=== PATIENT | male | born 1980 | race Caucasian/White ===

== ENCOUNTER 2023-08-09 13:35 | Outpatient (CLI) | payer OTHER, SELFPAY ==
--- NOTE | ~2023-08-09 | XR_ITS ---
EXAM: XR abdomen/kub 1V DATE: 08/09/2023 13:54 HISTORY: Abd pain . COMPARISON: None available. FINDINGS: Clear lung bases. Normal bowel gas pattern. No organomegaly. Left pelvic phlebolith. Mild spinal asymmetry. Interbody devices at L4-5 and L5-S1. IMPRESSION: Unremarkable abdominal radiograph findings. Reviewed, dictated and finalized at location K.
== END 2023-08-09 13:36 ==
LOC: MICIMG 13:39
PROVIDERS: PCP Nurse Practitioner Adult Health; Visit Provider Nurse Practitioner Adult Health
DX: R10.84 Generalized abdominal pain (principal)
CPT/HCPCS: 74018

== ENCOUNTER 2024-07-07 10:41 | Emergency (ER) | payer OTHER, SELFPAY ==
--- OUTSIDE RECORDS SUMMARY | 2024-07-07 10:45 | XMS_ITS | Clinical Summary ---
Author Organization [facility] [employer] [place] Address [address] [place] [address] Care Team Providers Care Wrapper Stripper Name Role Phone Nessa Schultz MD Primary Care Provider [phone] Allergies No known active allergies Medications Cholecalciferol, Vitamin D3, 50 mcg (2,000 unit) Capsule Take 2,000 Int'l Units by mouth daily. Active multivitamin (DAILY-ROSA ISELA) tablet Take 1 Tablet by mouth daily. Active sildenafiL (Viagra) 100 mg tabletIndication s:Other male erectile dysfunction Take 1 Tablet (100 mg) by mouth 1 time daily as needed for Erectile Dysfunction. Take 0.5-4h before sexual activity. 30 Tablet 2 4 Active busPIRone (BUSPAR) 15 mg TabletIndication s:JOSSE (generalized anxiety disorder) Take 1 tablet by mouth once daily 90 Tablet 1 5 Active irbesartan (Avapro) 150 mg tabletIndication s:Benign hypertension Take 1 Tablet (150 mg) by mouth daily at bedtime. 90 Tablet 5 Active omeprazole (PriLOSEC) 20 mg Tablet, Delayed Release (E.C.)Indication s:Gastroesophage al reflux disease with esophagitis, unspecified whether hemorrhage Take 1 Tablet (20 mg) by mouth daily before breakfast. Take 15-30 minutes before first food of the day. 90 Tablet 5 Active buPROPion HCL (Wellbutrin XL) 300 mg Extended Release 24 hour tabletIndication s:Moderate episode of recurrent major depressive disorder (CMS/HCC) Take 1 Tablet (300 mg) by mouth daily in the morning. 90 Tablet 5 Active DULoxetine (Cymbalta) 30 mg Capsule, Delayed Release(E.C.)Ind ications:Chronic pain syndrome Take 1 Capsule (30 mg) by mouth daily in the morning. 90 Capsule 5 Active hydroCHLOROthiaz anastasiia 25 mg tabletIndication s:Benign hypertension Take 1 Tablet (25 mg) by mouth daily. 90 Tablet 5 Active buPROPion HCL (Wellbutrin XL) 300 mg Extended Release 24 hour tabletIndication s:Moderate episode of recurrent major depressive disorder (CMS/HCC) Take 1 Tablet (300 mg) by mouth daily in the morning. 90 Tablet 5 06/13/19 25 Discontinu ed(Reorder ) DULoxetine (Cymbalta) 30 mg Capsule, Delayed Release(E.C.)Ind ications:Chronic pain syndrome Take 1 Capsule (30 mg) by mouth daily in the morning. 90 Capsule 5 06/13/19 25 Discontinu ed(Reorder ) hydroCHLOROthiaz anastasiia 25 mg tabletIndication s:Benign hypertension Take 1 Tablet (25 mg) by mouth daily. 90 Tablet 5 06/13/19 25 Discontinu ed(Reorder ) irbesartan (Avapro) 150 mg tabletIndication s:Benign hypertension Take 1 Tablet (150 mg) by mouth daily at bedtime. 90 Tablet 5 06/13/19 25 Discontinu ed(Reorder ) omeprazole (PriLOSEC) 20 mg Tablet, Delayed Release (E.C.)Indication s:Gastroesophage al reflux disease with esophagitis, unspecified whether hemorrhage Take 1 Tablet (20 mg) by mouth daily before breakfast. Take 15-30 minutes before first food of the day. 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 Negative evals. Off all narcotics since 2021. Vitamin D deficiency 08/26/2021 Adrenal adenoma, right 05/01/2020 Overview (05/01/2020): Benign, found incidentally on CT SCAN Fibromyalgia 12/18/2019 History of lumbar fusion 12/18/2019 Overview (12/18/2019): 2005 Benign hypertension 12/27/2017 Resolved Problems Problem Noted Date Diagnosed Date Resolved Date ETD (Eustachian tube dysfunction), right 05/01/2020 08/26/2021 TISHA (obstructive sleep apnea) 04/01/2020 08/26/2021 Other hyperlipidemia 12/27/2017 020 Tobacco use 12/27/2016 12/18/2019 Cigarette dependence 12/27/2016 022 Encounters Date Type Department Care Team Description 06/14/2024 9:00 AM CDT Procedure visit [facility] [place] [address] [place] [address] Issue of repeat prescription for medication (Primary Dx) 06/12/2024 Refill [facility] [employer] [place] [address] [place] [address] Nessa Schultz MD Moderate episode of recurrent major depressive disorder (CMS/HCC); Chronic pain syndrome; Benign hypertension 06/12/2024 Refill [facility] [employer] [place] [address] [place] [address] Sherry Lala ANP Benign hypertension; Gastroesophageal reflux disease with esophagitis, unspecified whether hemorrhage 04/17/2024 External Device Data STL ABSTRACTION Provider, Abstract 04/12/2024 1:30 PM REEL SLITTER Office Visit [facility] [place] [address] [place] [address] Sherry Lala ANP Benign hypertension (Primary Dx); Gastroesophageal reflux disease with esophagitis, unspecified whether hemorrhage; Atypical nevus of face; Prediabetes; Screen for colon cancer 04/12/2024 Results Follow-Up [facility] [place] [address] [place] [address] Sherry Lala, MAGAN PSA, VITAMIN B12 LEVEL, VITAMIN D 25 HYDROXY, Additional followed-up results: 7 04/09/2024 8:40 AM REEL SLITTER Office Visit [facility] [place] [address] [address] Screening for condition (Primary Dx) 04/09/2024 Orders Only [facility] [place] [address] [place] [place] [address] Dalia Shaw Special screening for malignant neoplasm of prostate; Vitamin D deficiency; Benign hypertension; Prediabetes from Last 3 Months Immunizations Immunization Administration Dates Next Due (ADACEL/BOOSTRIX)(10 YR UP) TDAP VACCINE, 0.5ML, IM 10/28/2022 (BRYANT) COVID-19 VACCINE - EMERGENCY USE AUTHORIZATION, AD26,COV2S(PF) 0.5 ML IM SUSP 04/29/2020 (PNEUMOVAX 23)(50 YRS UP) PN EUMOCOCCAL POLYSACCHARIDE (PPV23) 0.5 ML, IM 12/13/2017 INFLUENZA VACCINE QUADRIVALE NT 3 YR UP PF IM 11/25/2021,12/03/2016 INFLUENZA VACCINE QUADRIVALENT 6 MOS UP IM 11/22,11/25/2017 INFLUENZA VACCINE QUADRIVALE NT 6 MOS UP PF IM 11/17/2022,11/19/2020,11/19/2019 INFLUENZA VACCINE TRIVALENT SPLIT VIRUS, (6 MOS UP), 0.5ML (PF), IM 11/23/2023 Family History Medical History Relation Name Comments Alcohol abuse Brother 1 Alcohol abuse Brother 2 No Known Problems Brother 3 No Known Problems Brother 4 No Known Problems Daughter Alcohol abuse Father James Primas Stroke Father James Primas Alcohol abuse Maternal Grandfather Sang Vincentshi Lung Cancer Maternal Grandfather Sang Dennys Breast Cancer Maternal Grandmother Jaqui Dennys Diabetes Mother Unknown Paternal Grandfather Lawrance Primas Alzheimer's Disease Paternal Grandmother No Known Problems Son Relation Name Status Comments Brother 1 Alive Brother 2 Alive Brother 3 Alive Brother 4 Alive Daughter Alive Father James Primas Maternal Grandfather Sang Noyola Maternal Grandmother Jaqui Noyola Mother Alive Paternal Grandfather Lawrance Primas Paternal Grandmother Son Alive Social History Tobacco Use Types Packs/Day Years Used Date Smoking Tobacco: Former Cigarettes 0.3 20 0 09/30/2000 - 09/30/2020 Smokeless Tobacco: Never Alcohol Use Standard Drinks/Week Comments Never 0 (1 standard drink = 0.6 oz pur e alcohol) rarely Sex and Gender Information Value Date Recorded Sex Assigned at Not on file Legal Sex Male 2:49 PM CDT Gender Identity Not on file Sexual Orientation Not on file Last Filed Vital Signs Vital Sign Reading Time Taken Comments Blood Pressure 130/78 04/12/2024 1:19 PM REEL SLITTER Pulse 78 04/12/2024 1:19 PM REEL SLITTER Temperature 36.9 C (98.4 F) 04/12/2024 1:19 PM REEL SLITTER Respiratory Rate 18 04/12/2024 1:19 PM REEL SLITTER Oxygen Saturation 99% 04/12/2024 1:19 PM REEL SLITTER Inhaled Oxygen Concentration - - Weight 117 kg (258 lb) 04/12/2024 1:19 PM REEL SLITTER Height 180.3 cm (5' 11 ) 04/12/2024 1:19 PM REEL SLITTER Body Mass Index 35.98 04/12/2024 1:19 PM REEL SLITTER Plan of Treatment Upcoming Encounters Date Type Department Care Team (Late st Contact Info) Description 10/01/2024 8:00 AM CDT Procedure visit [facility] [place] [address] [place] [address] 10/04/2024 1:30 PM CDT Office Visit [facility] [place] [address] [place] [address] Sherry Lala, ANP [address] [address] [address] [place] [address] Health Maintenance Due Date Last Done Comments HEPATITIS B VACCINES (1 of 3 - 19+ 3-dose series) 1997 COLORECTAL SCREENING 07/27/2023 Colorectal Cancer Screening 07/27/2023 FIT-DNA Q 3 years 07/27/2023 FIT/FOBT Q 1 year 07/27/2023 Flex Sig/CT Colonography Q 5 years 07/27/2023 COVID-19 Vaccine ( season) 2023 04/29/2020 Pre-Diabetes and Diabetes Screening 04/09/2027 04/09/2024, 11/08/2023, 05/05/2023, Additional history exists DTAP/TDAP/TD VACCINES (2 - Td or Tdap) 10/28/2032 10/28/2022 INFLUENZA VACCINE Completed 11/23/2023, , 11/25/2021, Additional history exists Preventative Visit- Commercial Completed 03/13/2024 HPV VACCINES Aged Out No longer eligi ble based on patient's age to complete this topic Procedures Procedure Name Priority Date/Time Associated Diagnosis Comments EXTRA TUBE Routine 04/09/2024 8:22 AM REEL SLITTER COMPREHENSIVE METABOLIC PANEL Routine 04/09/2024 8:22 AM REEL SLITTER Benign hypertension CBC WITH DIFFERENTIAL Routine 04/09/2024 8:22 AM REEL SLITTER Benign hypertension URINALYSIS W/REFLEX MICROSCOPIC Routine 04/09/2024 8:22 AM REEL SLITTER Benign hypertension TSH REFLEXIVE Routine 04/09/2024 8:22 AM REEL SLITTER Benign hypertension MICROALBUMIN/CREATINI NE RATIO, RANDOM UR Routine 04/09/2024 8:22 AM REEL SLITTER Prediabetes HEMOGLOBIN A1C Routine 04/09/2024 8:22 AM REEL SLITTER Prediabetes LIPID PANEL Routine 04/09/2024 8:22 AM REEL SLITTER Benign hypertension VITAMIN D 25 HYDROXY Routine 04/09/2024 8:22 AM REEL SLITTER Vitamin D deficiency VITAMIN B12 LEVEL Routine 04/09/2024 8:2 2 AM REEL SLITTER Vitamin D deficiency PSA Routine 04/09/2024 8:22 AM REEL SLITTER Special screening for malignant neoplasm of prostate from Last 3 Months Results * EXTRA TUBE (04/09/2024 8:22 AM REEL SLITTER) COMMENT CHEMISTRY [facility] Comment: An extra specimen was received with no test requested. The specimen will be maintained in storage in case additional testing is needed. Please call the client service department for further assistance. SPECIMEN TYPE Serum [facility] Comment: Test Performed at: [facility] [address] [place] [address] Rogelio Louis MD 04/09/2024 8:22 AM REEL SLITTER 04/10/2024 8:43 AM REEL SLITTER Sherry Lala ANP CHEMISTRY ORDERABLES Final R esult Performing Organization Address City/State/ZIP Co ks Phone Number [facility] [phone] [facility] [address] [place] [address] * TSH REFLEXIVE (04/09/2024 8:22 AM REEL SLITTER) Pathologist [facility] TSH 1.53 0.40 - 4.50 mIU/L [facility] Comment: Test Performed at: [place] [address] [address] [place] [address] Rogelio Louis Blood 04/09/2024 8:22 AM REEL SLITTER 04/10/2024 2:18 AM REEL SLITTER Sherry Lala ANP CHEMISTRY ORDERABLES Final R esult [facility] [phone] [facility] [place] [address] [address] [address] * MICROALBUMIN/CREATININE RATIO, RANDOM UR (04/09/2024 8:22 AM REEL SLITTER) Creatinine, Urine 49 20 - 320 mg/dL [facility] MICROALBUMIN, URINE 0.4 See Note: mg/dL [facility] Comment: Reference Range: Reference Range Not established MICROALBUMIN/CREAT RATIO, UR 8 <30 mg/g creat [facility] Comment: The ADA defines abnormalities in albumin excretion as follows: Albuminuria Category Result (mg/g creatinine) Normal to Mildly increased <30 Moderately increased 30-299 Severely increased > OR = 300 The ADA recommends that at least two of three specimens collected within a 3-6 month period be abnormal before considering a patient to be within a diagnostic category. Test Performed at: [facility] [address] [place] [address] Rogelio Louis MD Urine URINE SPECIMEN OBTAINED BY CLEAN CATCH PROCEDURE / Unknown 04/09/2024 8:22 AM REEL SLITTER 04/10/2024 8:43 AM REEL SLITTER us Sherry Lala ANP URINE ORDERABLES Final Resul t [facility] [phone] [facility] [address] [place] [address] * (ABNORMAL) CBC WITH DIFFERENTIAL (04/09/2024 8:22 AM REEL SLITTER) WBC 6.0 3.8 - 10.8 Thousand/ uL [facility] RBC 4.84 4.20 - 5.80 Million/u L [facility] HEMOGLOBIN 13.6 13.2 - 17.1 g/dL [facility] HEMATOCRIT 42.9 38.5 - 50.0 % [facility] MCV 88.6 80.0 - 100.0 fL [facility] MCH 28.1 27.0 - 33.0 pg [facility] MCHC 31.7(L) 32.0 - 36.0 g/dL [facility] Comment: For adults, a slight decrease in the calculated MCHC value (in the range of 30 to 32 g/dL) is most likely not clinically significant; however, it should be interpreted with caution in correlation with other red cell parameters and the patient's clinical condition. RDW 12.6 11.0 - 15.0 % [facility] PLATELETS 303 140 - 400 Thousand/ uL [facility] MPV 10.1 7.5 - 12.5 fL [facility] NEUTROPHIL ABSOLUTE 3,462 1,500 - 7,800 cells/uL [facility] LYMPHOCYTE ABSOLUTE 2,022 850 - 3,900 cells/uL [facility] MONOCYTE ABSOLUTE 426 200 - 950 cells/uL [facility] EOSINOPHIL ABSOLUTE 42 15 - 500 cells/uL [facility] BASOPHILS ABSOLUTE 48 0 - 200 cells/uL [facility] NEUTROPHIL 57.7 % [facility] LYMPHOCYTES 33.7 % [facility] MONOCYTE 7.1 % [facility] EOSINOPHILS 0.7 % [facility] BASOPHILS 0.8 % [facility] Comment: Test Performed at: [place] [address] [address] [place] [address] Rogelio [facility] Blood 04/09/2024 8:22 AM REEL SLITTER 04/10/2024 2:18 AM REEL SLITTER Sherry Lala ANP HEMATOLOGY ORDERABLES Final Result [facility] [phone] [place] [address] [address] [place] [address] * VITAMIN D 25 HYDROXY (04/09/2024 8:22 AM REEL SLITTER) VITAMIN D, 25 OH, TOTAL 38 30 - 100 ng/mL [facility] Comment: Vitamin D Status 25-OH Vitamin D: Deficiency: <20 ng/mL Insufficiency: 20 - 29 ng/mL Optimal: > or = 30 ng/mL For 25-OH Vitamin D testing on patients on D2-supplementation and patients for whom quantitation of D2 and D3 fractions is required, the Quest[facility](TM) 25-OH VIT D, (D2,D3), LC/MS/MS is recommended: order code [id number] (patients >2yrs). See Note 1 Note 1 For additional information, please refer to http://education.CallMD/faq/OVO326 (This link is being provided for informational/ educational purposes only.) Test Performed at: [facility] [address] [place] [address] Rogelio Louis MD Blood 04/09/2024 8:22 AM REEL SLITTER 04/10/2024 2:18 AM REEL SLITTER Sherry Lala [facility] CHEMISTRY ORDERABLES Final R esult [facility] [phone] [facility] [address] * URINALYSIS WITH REFLEX MICROSCOPIC (04/09/2024 8:22 AM REEL SLITTER) COLOR UA YELLOW YELLOW [facility] CLARITY UA CLEAR CLEAR [facility] SPECIFIC GRAVITY UA 1.009 1.001 - 1.035 [facility] PH UA 7.5 5.0 - 8.0 [facility] GLUCOSE UA NEGATIVE NEGATIVE [facility] BILIRUBIN UA NEGATIVE NEGATIVE [facility] KETONES UA NEGATIVE NEGATIVE [facility] BLOOD UA NEGATIVE NEGATIVE [facility] PROTEIN UA NEGATIVE NEGATIVE [facility] NITRITE UA NEGATIVE NEGATIVE [facility] LEUKOCYTE ESTERASE UA NEGATIVE NEGATIVE [facility] WBC UA NONE SEEN < OR = 5 /HPF [facility] RBC UA NONE SEEN < OR = 2 /HPF [facility] EPITHELIAL CELLS, URINE NONE SEEN < OR = 5 /HPF [facility] BACTERIA UA NONE SEEN NONE SEEN /HPF [facility] HYALINE CAST NONE SEEN NONE SEEN /LPF [facility] Comment: Test Performed at: [facility] [address] [place] [address] Rogelio Louis MD Urine URINE SPECIMEN OBTAINED BY CLEAN CATCH PROCEDURE / Unknown 04/09/2024 8:22 AM REEL SLITTER 04/10/2024 8:43 AM REEL SLITTER Sherry Ocampo Spike ANP URINE ORDERABLES Final Resul t [facility] [phone] [facility] [address] [facility] [place] [address] * PSA (04/09/2024 8:22 AM REEL SLITTER) PSA 0.61 < OR = 4.00 ng/mL [facility] Comment: The total PSA value from this assay system is standardized against the WHO standard. The test result will be approximately 20% lower when compared to the equimolar-standardized total PSA (Anat [employer]). Comparison of serial PSA results should be interpreted with this fact in mind. This test was performed using the Siemens chemiluminescent method. Values obtained from different assay methods cannot be used interchangeably. PSA levels, regardless of value, should not be interpreted as absolute evidence of the presence or absence of disease. Test Performed at: [facility] [address] Rogelio Louis MD Blood 04/09/2024 8:22 AM REEL SLITTER 04/10/2024 2:18 AM REEL SLITTER Sherry Ocampo Spike ANP CHEMISTRY ORDERABLES Final R esult Performing Organization Address City/[facility]/ZIP Co de Phone Number [facility] [phone] [facility] [address] [place] [address] * HEMOGLOBIN A1C (04/09/2024 8:22 AM REEL SLITTER) HEMOGLOBIN A1C 5.6 <5.7 % of total Hgb [facility] Comment: For the purpose of screening for the presence of diabetes: <5.7% Consistent with the absence of diabetes 5.7-6.4% Consistent with increased risk for diabetes (prediabetes) > or =6.5% Consistent with diabetes This assay result is consistent with a decreased risk of diabetes. Currently, no consensus exists regarding use of hemoglobin A1c for diagnosis of diabetes in children. According to [place] Diabetes Association (ADA) guidelines, hemoglobin A1c <7.0% represents optimal control in non- diabetic patients. Different metrics may apply to specific patient populations. Standards of Medical Care in Diabetes(ADA). ESTIMATED AVERAGE GLUCOSE (MG/DL) 114 mg/dL [facility] ESTIMATED AVERAGE GLUCOSE (MMOL/L) 6.3 mmol/L [facility] Comment: Test Performed at: [place] [address] [place] [address] Rogelio Louis Blood 04/09/2024 8:22 AM REEL SLITTER 04/10/2024 2:18 AM REEL SLITTER Sherry Lala ANP CHEMISTRY ORDERABLES Final R esult [facility] [phone] [place] [address] [place] [address] * VITAMIN B12 LEVEL (04/09/2024 8:22 AM REEL SLITTER) VITAMIN B12 483 200 - 1100 pg/mL [facility] Comment: Test Performed at: [facility] [address] [place] [address] Rogelio Louis MD Blood 04/09/2024 8:22 AM REEL SLITTER 04/10/2024 2:18 AM REEL SLITTER Sherry Lala ANP CHEMISTRY ORDERABLES Final R esult Performing Organization Address City/State/ZIP Co ks Phone Number [facility] [phone] [facility] [address] [place] [address] * (ABNORMAL) LIPID PANEL (04/09/2024 8:22 AM REEL SLITTER) CHOLESTEROL 231(H) <200 mg/dL [facility] HDL 55 > OR = 40 mg/dL [facility] TRIGLYCERIDE 120 <150 mg/dL [facility] LDL CALCULATED 152(H) mg/dL (calc) [facility] Comment: Reference range: <100 Desirable range <100 mg/dL for primary prevention; <70 mg/dL for patients with CHD or diabetic patients with > or = 2 CHD risk factors. LDL-C is now calculated using the Marek calculation, which is a validated novel method providing better accuracy than the Friedewald equation in the estimation of LDL-C. Que SPENCER et al. JUAN JOSE. 2013;310(19): 1820-9165 (http://education.CallMD/faq/RHG616) CHOL/HDL RATIO 4.2 <5.0 (calc) [place] [facility] NON-HDL CHOLESTEROL 176(H) <130 mg/dL (calc) [facility] Comment: For patients with diabetes plus 1 major ASCVD risk factor, treating to a non-HDL-C goal of <100 mg/dL (LDL-C of <70 mg/dL) is considered a therapeutic option. Test Performed at: [facility] [place] [address] [place] [address] [facility] Blood 04/09/2024 8:22 AM REEL SLITTER 04/10/2024 2:18 AM REEL SLITTER us Sherry Lala [facility] CHEMISTRY ORDERABLES Final R esult [facility] [phone] [place] [address] [place] [address] * COMPREHENSIVE METABOLIC PANEL (04/09/2024 8:22 AM REEL SLITTER) GLUCOSE 93 65 - 99 mg/dL [facility] Comment: Fasting reference interval BUN 12 7 - 25 mg/dL [facility] CREATININE 0.97 0.60 - 1.29 mg/dL [facility] GFR 98 > OR = 60 mL/min/1. 73m2 [facility] BUN/CREAT RATIO SEE NOTE: (calc) [facility] Comment: Not Reported: BUN and Creatinine are within reference range. SODIUM 139 135 - 146 mmol/L [facility] POTASSIUM 3.5 3.5 - 5.3 mmol/L [facility] CHLORIDE 102 98 - 110 mmol/L [facility] CO2 26 20 - 32 mmol/L [facility] CALCIUM 9.3 8.6 - 10.3 mg/dL [facility] TOTAL PROTEIN 6.9 6.1 - 8.1 g/dL [facility] ALBUMIN 4.5 3.6 - 5.1 g/dL [facility] GLOBULIN 2.4 1.9 - 3.7 g/dL (calc) [facility] ALBUMIN/GLOBULIN RATIO 1.9 1.0 - 2.5 (calc) [facility] BILIRUBIN TOTAL 0.5 0.2 - 1.2 mg/dL [facility] ALKALINE PHOSPHATASE 75 36 - 130 U/L [facility] AST 17 10 - 40 U/L [facility] ALT 18 9 - 46 U/L [facility] Comment: Test Performed at: [facility] [address] [place] [address] [facility] Blood 04/09/2024 8:22 AM REEL SLITTER 04/10/2024 2:18 AM REEL SLITTER Narrative [id number]|2024-07-07 10:45:00|2024-07-07 10:44:00|XMS_ITS|BKG DAEMON|External Medical Summaries|[id number]|" Clinical Summary Created on: July 07, 2024 Crow Deras : 1980 Sex: Male Author Organization [facility] [address] Address [address] [place] [address] Care Team Providers Care Wrapper Stripper Name Role Phone Junior Franco MD Primary Care Provider Allergies No known active allergies Medications buPROPion XL (WELLBUTRIN XL) 150 mg 24 hr tablet Take 150 mg by mouth 1 Active amLODIPine (NORVASC) 10 mg tablet Take 10 mg by mouth daily [address] (NexIUM) 40 mg capsule Take 40 mg by mouth daily before breakfast 1 Active ondansetron (ZOFRAN) 4 mg tablet Take 1 tablet (4 mg total) by mouth every 8 (eight) hours as needed for nausea or vomiting for up to 20 doses 20 tablet 1 Active HYDROcodone-vic taminophen (NORCO) 10-325 mg per tablet Take 1 tablet by mouth every 6 (six) hours as needed 1 Active Active Problems Problem Noted Date Diagnosed Date Chronic eczematous otitis externa of right ear 0 10/17/2020 Assessment & Plan (10/17/2020 9:05 PM CDT): Elocon cream to outer portion of ears twice daily for 14 days then as needed Post tonsillectomy secondary hemorrhage 10/04/19 21 Hemorrhage following tonsillectomy 10/02/2020 Adenotonsillar hypertrophy 08/19/2020 Assessment & Plan (10/17/2020 9:06 PM CDT): Continue increased fluid intake for one more week May return to work without restrictions on Tuesday Assessment & Plan (10/08/2020 10:12 AM CDT): Continue increased fluid intake and softer diet and light activity for one more week Follow up in on 10/17 Finish Medrol dose pack Tylenol during the day Avoid Ibuprofen Assessment & Plan (08/19/2020 4:07 PM CDT): Plan tonsillectomy and adenoidectomy. - Discussed risks, benefits, and alternatives. Reviewed risks, including anesthesia, pain, bleeding, injury to lips, teeth, gums and tongue, dehydration, scarring, velopharyngeal insufficiency, voice changes, regrowth of tissue. - Reviewed postoperative care: 1-2 weeks off school/daycare, and 2 weeks of light activity and soft diet, with emphasis on fluid hydration, red or purple coloring, straws and dairy are fine to drink. - informational paperwork, including description of surgery, risks, and postop care provided All questions were answered and they would like to proceed. Sleep study 2-3 months after surgery Immunizations Immunization Administration Dates Next Due [employer] ([employer]) SARS-CoV-2 Vaccination 04/29/2020 Surgical History Surgery Date Site/Laterality Comments BACK SURGERY VASECTOMY Medical History Medical History Date Comments Fibromyalgia Hypertension GERD (gastroesophageal reflux disease) Social History Tobacco Use Types Packs/Day Years Used Date Smoking Tobacco: Former Cigarettes 0.4 25 0 07/23/1995 - 07/22/2020 Smokeless Tobacco: Never Tobacco Cessation:Counseling Given: No Comments:quit july 2020--Smoked for 25 yrs less than half pack daily AUDIT-C Answer Date Recorded Q1: How often do you have a drink containing alc ohol? Never 10/03/2020 Average Number of Drinks Not on file 021 Q3: How often do you have si x or more drinks on one occasion? Never 10/03/2020 Sex and Gender Information Value Date Recorded Sex Assigned at Not on file Legal Sex Male 7:35 PM REEL SLITTER Gender Identity Not on file Sexual Orientation Not on file Obstetrics History Last Filed Vital Signs Vital Sign Reading Time Taken Comments Blood Pressure 137/81 10/17/2020 1:53 PM CDT Pulse 80 10/17/2020 1:53 PM CDT Temperature 36.8 C (98.2 F) 10/17/2020 1:53 PM CDT Respiratory Rate 18 10/04/2020 7:44 AM CDT Oxygen Saturation 100% 10/04/2020 7:44 AM CDT Inhaled Oxygen Concentration - - Weight 101.6 kg (224 lb) 10/17/2020 1:53 PM CDT Height 177.8 cm (5' 10 ) 10/17/2020 1:53 PM CDT Body Mass Index 32.14 10/17/2020 1:53 PM CDT Plan of Treatment Health Maintenance Due Date Last Done Comments Colon Cancer Screening-Colonoscopy 1978 Depression Screening 1978 Hepatitis C Screening 1978 DTaP/Tdap/Td Vaccine (1 - Tdap) 1989 Hepatitis B Screening 1996 Regular Well Visit/Exam 18-64 1996 Covid-19 Vaccine (2 - season) 2023 04/29/2020 Influenza Vaccine (#1) 2023 0, 11/22/2018, 11/25/2017, Additional history exists Pneumococcal vaccine <65 Aged Out 12/13/2017 No longer eligible based on patient's age to complete this topic HPV Vaccines Aged Out No longer eligi ble based on patient's age to complete this topic Insurance [facility] HMO/PPO Address: [address] [address] Advance Directives For more information, please contact: [phone] * Full Code (Latest Code Status on File) Date Activated Date Inactivated Comments 10/03/2020 6:51 AM 10/04/2020 1:21 PM * Full Code Date Activated Date Inactivated Comments 10/01/2020 11:26 PM 10/02/2020 3:34 PM Care Teams Wrapper Stripper Relationship Specialty Start Date End Date Junior Franco MD [address] [place] [address] [place] [address] PCP - General Family Medicine 06/30/20 "
--- OUTSIDE RECORDS SUMMARY | 2024-07-07 10:45 | XMS_ITS | Referral Summary ---
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 Gender Identity Not on file Sexual Orientation [...] 10/17/2020 1:53 PM CDT Plan of Treatment Not on file Insurance [facility] H[facility]/PPO Address: [address] [address] Advance Directives For more information, please contact: [phone] * Full Code (Latest Code Status on File) Date Activated Date Inactivated Comments 10/03/2020 6:51 AM 10/04/2020 1:21 PM * Full Code Date Activated Date Inactivated Comments 10/01/2020 11:26 PM 10/02/2020 3:34 PM Care Teams Obstetrics Gynecology Physician Relationship Specialty Start Date End Date Junior Franco MD [address] [place] [address] [place] [address] PCP - General Family Medicine 06/30/20
--- OUTSIDE RECORDS SUMMARY | 2024-07-07 10:45 | XMS_ITS | Continuity of Care Document ---
Author Organization [facility] Address [address] [place] [address] Phone Care Team Providers Care Sock Mender Name Role Phone Harman Cole MD Unavailable Unavailable Advance Directives Directive Yes / No Effective Date File Name No Information Encounters Encounter Description Practice Location Reason(s) For Visit Diagnoses Date Provider Providers Copied on Encounter [facility], [address], [place], [place], [id number], tel:[phone] [facility] [address], [place], [place], [address], [place]. tel:[phone] [facility], [address], [place], [place], [address], [place] tel:[phone] [facility] OTH ADV EFF MED/BIO SUB [facility]. [address], [place], [place], [address], [place]. tel:[phone] Family History Family Member Type Diagnosis Age At Onset No Information Payers Payer name Insurance type Covered democrat ID Authoriza tion(s) No Information Social History Type Description Quantity Date Captured Comments Sex Male Smoking Status No Information Chief Complaint And Reason For Visit No Information Reason For Referral Reason For Referral No Information History Of Present Illness Encounter Date Complaint History Of Prese nt Illness No Information Functional Status Date Functional Assessmen t No Information Instructions Date Instruction Additional Infor mation No Information Assessments Type Assessment Date No Information Patient Care Teams Name Effective Dates (start - stop) Status Members No Information
--- OUTSIDE RECORDS SUMMARY | 2024-07-07 10:46 | XMS_ITS | Continuity of Care Document ---
Author Organization [facility] Address [address] [place] [address] Phone Care Team Providers Care Quality Control Assessor Name Role Phone Harman Cole MD Unavailable Unavailable Advance Directives Directive Yes / No Effective Date File Name No Information Encounters Encounter Description Practice Location Reason(s) For Visit Diagnoses Date Provider Providers Copied on Encounter [facility], [address], [place], [place], [address], tel:[phone] [facility] [address], [place], [place], [address], [place]. tel:[phone] [facility], [address], [place], [place], [address], [place] tel:[phone] [facility] EFF MED/BIO SUB [facility]. [address], [place], [place], [address], [place]. tel:[phone] Family History Family Member Type Diagnosis Age At Onset No Information Payers Payer name Insurance type Covered republican ID Authoriza tion(s) No Information Social History [...]
[2024-07-07 10:47] VITALS: BP 149/84; PULSE 88; RESP 20; TEMP 35.9; O2SAT 99
--- NOTE | 2024-07-07 11:58 | ED.GENADULT ---
HPI - General Adult General Chief complaint: Upper Respiratory Infection Stated complaint: headache, stuffy nose, raspy cough,sweat Source: patient Mode of arrival: ambulatory Limitations: no limitations History of Present Illness HPI narrative: Pt presents for evaluation of sick symptoms. He states two weeks ago he was experiencing symptoms consistent with a common cold including headache, sinus congestion, and rhinorrhea. His symptoms improved about one week ago but he had recurrence of his symptoms thereafter. he now has thick green drainage from the nares, otalgia, hot sweats, wheezing and productive cough of yellow/green sputum. no recent sick contacts to his knowledge. He tried taking Sudafed and an antihistamine for his symptoms. He occasionally vapes. Related Data Home Medications Medication Instructions Recorded Confirmed Last Taken Type bupropion HCl PO 07/07/24 Unknown History esomeprazole magnesium .ROUTE 07/07/24 Unknown History hydrochlorothiazide PO 07/07/24 Unknown History irbesartan .ROUTE 07/07/24 Unknown History Allergies Allergy/AdvReac Type Severity Reaction Status Date / Time No Known Allergies Allergy Unverified 07/07/24 10:52 Review of Systems Review of Systems: CONSTITUTIONAL: reports episodes of diaphoresis. Denies fever, chills, or sweats. EYES: Denies visual changes, redness, or discharge. ENT: reports sinus congestion, thick yellow/green drainage from the nares and otalgia. Denies sore throat CARDIOVASCULAR: Denies chest pain, palpitations, or edema. RESPIRATORY: Reports cough and wheezing. Denies SOB GASTROINTESTINAL: Denies abdominal pain, nausea, vomiting, or diarrhea. GENITOURINARY: Denies dysuria or hematuria. SKIN: Denies rash or itching. MUSCULOSKELETAL: Denies back pain, joint pain, or myalgia. NEUROLOGIC: Reports headache. Denies numbness, dizziness, or weakness. PSYCHIATRIC: Denies anxiety or depression. [facility] Past Medical History Medical History Anxiety Depression Hypertension Surgical History Surgical History No pertinent past surgical history Family History Family History Mother Family history non-contributory Social History Social History Smoking status: Current some day smoker Tobacco type: e-cigarettes/vaping Gender identity (if verbalized by the patient): Male Spiritual care concerns: No Exam Narrative: GENERAL: Well-appearing, well-nourished, and in no acute distress. HEAD: Normocephalic, atraumatic. EYES: PERRLA and EOMI. ENT: Nares clear, no rhinorrhea or epistaxis. Mucous membranes moist. Oropharynx without tonsillar hypertrophy exudate or other lesions. Bilateral TMs pearly encinas nonbulging NECK: Supple. No adenopathy or masses. No carotid bruits or JVD CHEST: wheezing noted in all lung llamas bilaterally. No respiratory distress. No rales or rhonchi HEART: Regular rate and rhythm. No murmur heard. Normal peripheral pulses. ABDOMEN: Soft, nontender, nondistended, normal active bowel sounds. EXTREMITIES: Normal range of motion. No edema. SKIN: Warm, dry, no rash. NEURO: No focal deficits. Alert and oriented x3. PSYCH: Normal mood and affect. Course Course Emergency Course: This is a 43-year-old male who presented for evaluation of sick symptoms. I recommended CXR. He declined secondary to cough. His clinical picture is suggestive of pneumonia so we agreed to empirically treat with azithromycin and augmentin. He has taken steroids in the past and tolerated them well. Will also provide script for prednisone and albuterol. He should follow up with PCP and go to the ER for worsening symptoms. Pt in agreement with plan of care. Level of Care: Express Care Visit Vital Signs Vital signs: Vital Signs Temperature 35.9 C L 07/07/24 10:47 Pulse Rate 88 07/07/24 10:47 Respiratory Rate 20 07/07/24 10:47 Blood Pressure 149/84 H 07/07/24 10:47 Pulse Oximetry 99 07/07/24 10:47 Oxygen Delivery Room Air 07/07/24 10:47 Temperature 35.9 C L 07/07/24 10:47 Pulse Rate 88 07/07/24 10:47 Respiratory Rate 20 07/07/24 10:47 Blood Pressure 149/84 H 07/07/24 10:47 Pulse Oximetry 99 07/07/24 10:47 Oxygen Delivery Room Air 07/07/24 10:47 Medical Decision Making Vital Signs Vital Signs: Vital Signs Temperature 35.9 C L 07/07/24 10:47 Pulse Rate 88 07/07/24 10:47 Respiratory Rate 20 07/07/24 10:47 Blood Pressure 149/84 H 07/07/24 10:47 Pulse Oximetry 99 07/07/24 10:47 Oxygen Delivery Room Air 07/07/24 10:47 Temperature 35.9 C L 07/07/24 10:47 Pulse Rate 88 07/07/24 10:47 Respiratory Rate 07/07/24 10:47 Blood Pressure 149/84 H 07/07/24 10:47 Pulse Oximetry 99 07/07/24 10:47 Oxygen Delivery Room Air 07/07/24 10:47 Discharge Plan Discharge Clinical Impression: At risk for pneumonia Patient Disposition: Home Condition: Stable Instructions: Antibiotic Form, Bacterial Pneumonia (DC) Patient Language: Palauan Prescriptions: New prednisone 50 mg tablet 50 mg PO DAILY Qty: 5 0RF albuterol sulfate [Ventolin HFA] 90 mcg/actuation HFA aerosol inhaler 2 puff inhalation QID PRN (Reason: shortness of breath or wheezing) Qty: 8.5 0RF amoxicillin-pot clavulanate 875-125 mg tablet 1 tablet PO Q12H Qty: 20 0RF azithromycin 250 mg tablet See Rx Instructions .ROUTE .COMPLEX Qty: 6 0RF Rx Instructions: For 250 mg dose pack: take 500 mg today (day 1), then 250 mg for 4 days (days 2-5) No Action hydrochlorothiazide PO esomeprazole magnesium .ROUTE irbesartan .ROUTE bupropion HCl PO Follow-up/Referrals: Cynthia Chadwick DO [Physician] - Time of Disposition: 11:55
== END 2024-07-07 11:58 | disposition home or self-care (01) ==
PROVIDERS: Emergency Provider Nurse Practitioner
DX: R05.9 Cough, unspecified (principal); R06.2 Wheezing; J34.89 Other specified disorders of nose and nasal sinuses; I10 Essential (primary) hypertension
CPT/HCPCS: 99203; G0463

== ENCOUNTER 2024-11-25 15:39 | Observation (INO) | payer OTHER, SELFPAY ==
[2024-11-25] VITALS (33 sets, daily range): BP systolic 115–170; BP diastolic 51–104; PULSE 67–173; RESP 11–30; TEMP 36.8; O2SAT 92–100; BMI 33.1
--- NOTE | ~2024-11-25 | XR_ITS ---
EXAMINATION: XR chest 1V portable COMPARISON: No comparisons available. HISTORY: chest pain FINDINGS: The lungs are clear, no effusion. No pneumothorax. Heart is normal size. Mediastinal and hilar contours are within normal limits. Bony thorax no acute abnormality. Miscellaneous: None Impression: No acute cardiopulmonary abnormality. Reviewed, dictated and finalized at location P. Impression: No acute cardiopulmonary abnormality.
--- NOTE | 2024-11-25 15:43 | ECG_ITS ---
Test Date: 2024-11-25 15:44:19 Measurements Intervals [place] Rate: 154 P: 0 MT: 0 QRS: 18 QRSD: 108 T: 97 QT: 293 QTc: 469 Interpretive Statements ATRIAL FIBRILLATION WITH RAPID VENTRICULAR RESPONSE LEFT VENTRICULAR HYPERTROPHY WITH ST-T CHANGE NONSPECIFIC ST & T-WAVE ABNORMALITY- INFERIOR LEADS ABNORMAL ECG No previous ECG available for comparison Electronically Signed On 11-25-2024 19:30:16 CDT by Randal Real D.O.
[2024-11-25 15:58] LABS: Hematocrit 44.5 % (42.0-52.0); Hemoglobin 15.2 g/dL (14.0-18.0); Immature Granulocyte Percent A 0.2 % (0-0.5); Lymphocytes Absolute Auto 2.17 K/mm3 (0.9-3.2); Mean Corpuscular HGB Conc 34.2 g/dl (32-36); Mean Corpuscular Hemoglobin 28.6 pg (26-34); Mean Corpuscular Volume 83.6 fl (80-100); Nucleated Red Blood Cells Absolute Auto 0.000 K/mm3 (0.0-0.012); Nucleated Red Blood Cells Perc 0.0 % (0.0-0.2); Platelet Count Result 317 k/mm3 (150-375); Red Blood Count 5.32 M/mm3 (4.6-6.20); White Blood Count 8.2 K/mm3 (4.5-10.0)
[2024-11-25] MEDS: SODIUM CHLORIDE 0.9% IV 1,000 ML 999 ML IV CONT (15:59)
[2024-11-25 16:12] LABS: INR 1.0; Prothrombin Time 13.3 Seconds (11.1-14.7)
[2024-11-25 16:13] LABS: Partial Thromboplastin Time 29.9 Seconds (22.3-36.8)
--- NOTE | 2024-11-25 16:14 | ED.CHESTPAIN ---
HPI - Chest Pain General Chief Complaint: Chest Pain Stated Complaint: chest pressure Time Seen by Provider: 11/25/24 15:43 Source: patient and EMS Mode of arrival: EMS Limitations: no limitations History of Present Illness HPI narrative: Patient is a 44 y/o who presents to the ED via EMS with report of CP, elevated HR. Patient reports he was sitting talking to his mother approximately 1 hour ago when he suddenly broke out in a cold sweat, developed midsternal chest pain, racing heart palpitations, nausea, vomiting, became SOB, dizzy and lightheaded. EMS was called. Per EMS, patient's heart rate was noted to be in the 230s. Is also noted to be hypotensive with initial blood pressure in the ED. Fluids were initiated. Patient brought here for further evaluation. Patient does report chest pain improved after having vomiting episode. Denies current chest pain. Denies previous history of AFib or SVT. Denies history of coronary disease. Hx of HTN, on irbesartan/HCTZ. Also currently on Wegovy for weight loss. Related Data Home Medications ?Medication ?Instructions ?Recorded ?Confirmed ?Last Taken ?Type bupropion HCl 300 mg PO DAILY 07/07/24 11/25/24 11/25/24 History esomeprazole magnesium 20 mg .Route DAILY 07/07/24 11/25/24 11/25/24 History hydrochlorothiazide 25 mg PO DAILY 07/07/24 11/25/24 11/25/24 History irbesartan 150 mg PO HS 07/07/24 11/25/24 11/25/24 History buspirone 15 mg tablet 15 mg PO DAILY 11/25/24 11/25/24 11/25/24 History semaglutide (weight loss) 0.25 0.25 mg subcut Q7D 11/25/24 11/25/24 11/24/24 History mg/0.5 mL subcutaneous pen injector (Wegovy) sildenafil 100 mg tablet 100 mg PO DAILY PRN erectile 11/25/24 11/25/24 11/23/24 History dysfunction Allergies Allergy/AdvReac Type Severity Reaction Status Date / Time No Known Allergies Allergy Verified 11/25/24 18:49 Review of Systems Review of Systems: All systems reviewed & are unremarkable except as noted in HPI. All systems reviewed & are unremarkable except as noted in HPI and below PMFSH Past Medical History Medical History Anxiety Depression Hypertension Surgical History Surgical History No pertinent past surgical history Family History Family History Mother Family history non-contributory Father Cerebrovascular accident Social History Social History Smoking status: Never smoker Tobacco type: e-cigarettes/vaping Alcohol intake: never Substance use: never Substance use type: does not use Lack of Transportation: No Lack of Food: Never True Current Housing: I Have Housing Concerned About Future Housing: No Difficulty Paying Gas/Electric Bills: No Difficulty Paying for Meds: No Currently Unemployed: No Education: Decline to Answer Difficulty w/ Childcare or Family Care: No Gender identity (if verbalized by the patient): Male Spiritual care concerns: No Exam Narrative: GENERAL: Ill/diaphoretic appearing, obese with BMI of 34.8, non-toxic, in no acute distress. HEAD: Normocephalic, atraumatic. RESPIRATORY: Airway patent, respirations nonlabored. Clear to auscultation bilaterally, no rales, rhonchi, wheezing. CARDIOVASCULAR: Tachycardic with irregular rhythm without murmurs, rubs, or gallops. ABDOMINAL: Soft, nontender, nondistended. Normoactive BS. MUSCULOSKELETAL: Moves all extremities. No gross deformities. No peripheral edema. No calf tenderness. SKIN: Warm, dry, diaphoretic/somewhat pale appearing NEURO: A&O X3. Speech clear. Cranial nerves II-XII grossly intact. Steady gait. No ataxic movements. PSYCHIATRIC: Appropriate mood and affect. Normal interaction. Course Vital Signs Vital signs: Vital Signs Pulse Rate 173 H 11/25/24 15:43 Respiratory Rate 12 11/25/24 15:43 Blood Pressure 148/89 H 11/25/24 15:43 Pulse Oximetry 97 11/25/24 15:43 Oxygen Delivery Room Air 11/25/24 15:43 Temperature 98.0 F 11/26/24 16:02 Pulse Rate 66 11/26/24 16:02 Respiratory Rate 18 11/26/24 16:02 Blood Pressure 154/87 H 11/26/24 16:02 Pulse Oximetry 97 11/26/24 16:02 Oxygen Delivery Room Air 11/26/24 12:00 Fraction of Inspired Oxygen 21 11/25/24 20:39 MDM - Chest Pain MDM Narrative Medical decision making narrative: Patient presented to ED with chest pain, palpitations, dizziness, diaphoresis, nausea, vomiting. Found to be significantly tachycardic and hypotensive by EMS. On arrival to the ED, blood pressure was stable at 148/89, however patient in AFib with RVR, rates in the 170s to 190s. No previous history of AFib. Not currently on any anticoagulation. Nonspecific ST changes seen on EKG, likely related to rate Baseline troponin 0.016. Will continue to monitor. Denying ongoing chest pain at this time CMP notable for potassium of 2.9. Anion gap of 13. Fluids are ongoing. Given IV and oral KCl replacement. Mag WNL BNP WNL TSH WNL D-dimer negative CXR clear Chads Vasc score 1 based on HTN. Patient responded well to Cardizem bolus. Heart rate did decrease from 180s to 130s. Started on Cardizem drip. Did receive additional 15mg bolus and p.o. Cardizem 30 mg tab. HR improved to 100-120s. BP remaining stable. Patient feeling improved. Continues to deny CP at this time. Discussed case with Dr. Leblanc, cardiology, recommended metoprolol tartrate 25mg BID, lovenox BID, will consult. Discussed case with Andry CHILD ATTENDANT hospitalist, accepted patient for admission. Patient and family in agreement with plan and need for admission. Medical Records Data Attestation: I reviewed the patient's medical records. Lab Data Attestation: I reviewed the patient's lab results. 11/26/24 04:20 11/26/24 04:20 Labs: Lab Results 11/25/24 11/25/24 Range/Units 15:50 15:50 WBC 8.2 (4.5-10.0) K/mm3 RBC 5.32 (4.6-6.20) M/mm3 Hgb 15.2 (14.0-18.0) g/dL Hct 44.5 (42.0-52.0) % MCV 83.6 (80-100) fl MCH 28.6 (26-34) pg MCHC 34.2 (32-36) g/dl RDW 12.6 (11.5-14.5) % Plt Count 317 (150-375) k/mm3 MPV 9.6 (7.4-10.4) fl Immature Gran % (Auto) 0.2 (0-0.5) % Neut % (Auto) 62.1 (45.5-73.1) % Lymph % (Auto) 26.4 (18.3-44.2) % [place] % (Auto) 10.4 H (2.6-8.5) % Eos % (Auto) 0.4 (0-4.4) % Baso % (Auto) 0.5 (0.2-1.2) % Lymph # (Auto) 2.17 (0.9-3.2) K/mm3 [place] # (Auto) 0.9 H (0.1-0.6) K/mm3 Eos # (Auto) 0.0 (0-0.3) K/mm3 Baso # (Auto) 0.0 (0.0-0.1) K/mm3 Abs Immat Gran (auto) 0.02 (0.00-0.031) K/mm3 Absolute Neuts (auto) 5.1 (1.3-6.7) K/mm3 Absolute Nucleated RBC 0.000 (0.0-0.012) K/mm3 Nucleated RBC % 0.0 (0.0-0.2) % PT 13.3 (11.1-14.7) Seconds INR 1.0 APTT 29.9 (22.3-36.8) Seconds D-Dimer < 0.27 (<0.48) ug/mL Sodium 139 (137-145) mmol/L Potassium 2.9 L (3.4-5.0) mmol/L Chloride 103 (98-107) mmol/L Carbon Dioxide 23 (22-30) mmol/L Anion Gap 13 H (4-12) mmol/L BUN 11 (9-20) mg/dL Creatinine 1.06 (0.7-1.3) mg/dL Estim Creat Clear Calc 96 ml/min Estimated GFR > 60 (59 - ) Glucose 98 (65-110) mg/dL Calcium 9.6 (8.4-10.2) mg/dL Magnesium Cancelled 2.0 Total Bilirubin 0.7 (0.2-1.3) mg/dL AST 38 (17-59) U/L ALT 28 (6-50) U/L Alkaline Phosphatase 79 (38-126) U/L Troponin I 0.016 (0.000-0.034) ng/mL NT-Pro-B Natriuret Pep 41 (19.9-100) pg/mL Total Protein 7.6 (6.3-8.2) g/dL Albumin 4.6 (3.5-5.1) g/dL Lipase 234 (23-300) U/L TSH (Reflex) 1.360 (0.465-4.68) uIU/mL Imaging Data Attestation: I personally reviewed and interpreted this imaging study as follows: Radiologist's impression: ITS Impressions Chest X-Ray 11/25/24 16:45 Impression: No acute cardiopulmonary abnormality. ECG Data EKG #1: Attestation: I personally reviewed and interpreted this ECG as follows: ECG completion date: 11/25/24 ECG completion time: 15:44 EKG Interpretation: tachycardia (154), atrial fibrillation (RVR) and non-specific ST changes Critical Care Time Critical Care Time Critical Care Time: Yes Total Critical Care Time: 50 Discharge Plan Discharge Clinical Impression: Atrial fibrillation with rapid ventricular response, Hypokalemia Chest pain Qualifiers: Chest pain type: unspecified Qualified Code(s): R07.9 - Chest pain, unspecified Patient Disposition: Still a Patient Condition: Improved
[2024-11-25 16:15] LABS: Alanine Aminotransferase 28 U/L (6-50); Albumin Level 4.6 g/dL (3.5-5.1); Alkaline Phosphatase 79 U/L (38-126); Anion Gap 13 mmol/L (4-12); Aspartate Amino Transferase 38 U/L (17-59); Bilirubin,Total 0.7 mg/dL (0.2-1.3); Blood Urea Nitrogen 11 mg/dL (9-20); Carbon Dioxide 23 mmol/L (22-30); Chloride 103 mmol/L (98-107); Estimated CRCL calculation 96 ml/min; Estimated Glomerular Filt Rate > 60; Lipase 234 U/L (23-300); Potassium 2.9 mmol/L (3.4-5.0); Sodium 139 mmol/L (137-145); Total Protein 7.6 g/dL (6.3-8.2)
[2024-11-25] MEDS: dilTIAZem 100 MG/100 ML 100 MG/100 ML BAG IV CONT (16:17)
[2024-11-25 16:22] LABS: Troponin I 0.016 ng/mL (0.000-0.034)
[2024-11-25 16:27] LABS: Calcium 9.6 mg/dL (8.4-10.2); Glucose 98 mg/dL (65-110)
[2024-11-25] MEDS: POTASSIUM CHLORIDE INJ 40 MEQ in SODIUM CHLORIDE 0.9% IV 500 ML 130 MEQ IVPB (16:40)
[2024-11-25 16:48] LABS: Magnesium 2.0 mg/dL (1.6-2.3)
[2024-11-25 16:58] LABS: NT Pro B Type Natriuretic Pept 41 pg/mL (19.9-100)
[2024-11-25 17:23] LABS: Thyroid Stimulating Hormone Reflex 1.360 uIU/mL (0.465-4.68)
[2024-11-25] MEDS: ASPIRIN 81 MG CHEWABLE TABLET 324 MG PO (17:26)
[2024-11-25] MEDS: POTASSIUM CHLORIDE 20 MEQ ER TABLET 40 MEQ PO (17:26)
--- NOTE | 2024-11-25 18:08 | ECG_ITS ---
Test Date: 2024-11-25 18:11:54 Measurements Intervals [place] Rate: 86 P: 32 ME: 172 QRS: 12 QRSD: 106 T: 29 QT: 344 QTc: 413 Interpretive Statements SINUS RHYTHM WITH OCCASIONAL VENTRICULAR PREMATURE COMPLEXES LEFT VENTRICULAR HYPERTROPHY MINIMAL Q WAVES- HIGH LATERAL LEADS BORDERLINE ECG Compared to ECG 11/25/2024 15:44:19 Atrial fibrillation no longer present Electronically Signed On 11-25-2024 19:32:01 CDT by Randal Real D.O.
[2024-11-25] MEDS: METOPROLOL TARTRATE 25 MG TABLET PO ×2 (18:16→20:53)
[2024-11-25] MEDS: ENOXAPARIN 120 MG/0.8 ML SYRINGE 110 MG SUB-Q (18:17)
--- NOTE | 2024-11-25 18:34 | ADMGEN ---
This patient, Crow Deras, was admitted to IMU Room 205-02. Patient/family oriented to hospital policies and general routines including ID bracelet, bed and alarms, visiting hours, pain management, procedures, bathroom and other care routines, personal items, smoking policy, room service/diet, and visiting hours. Information on how to activate the Rapid Response Team has been discussed. Patient/Family are encouraged to report perceived risks to care and to ask questions if they do not understand what they are told or what they should do.
--- NOTE | 2024-11-25 19:08 | PM.IMHP ---
H&P: HPI History of Present Illness Date/Time: 11/25/24 19:08 Chief Complaint: palpitations, chest pain, diaphoresis, Afib RVR Narrative: This is a 44 year old male patient with a past medical history of hypertension and hyperlipidemia who presented to the emergency department for evaluation of palpitations. The patient reports he was at rest, sitting and talking with family this afternoon, when he experienced a sudden onset of a rapid heart rate. He endorsed associated symptoms of palpitations, sweating (diaphoresis), and mild dizziness. His family noted that his speech became garbled during the event. He denies current chest pain. Patient reports he requested the ambulance to be called. In the emergency department, the patient was found to be in an atrial fibrillation with RVR which subsequently converted to a sinus rhythm after significant amount of IV and oral diltiazem use. Cardiology was consulted and they requested oral metoprolol. He was also initiated on a subcutaneous Lovenox for treatment dose Q12HR in case he requires Cardioversion tomorrow. Initial lab work was significant for hypokalemia with potassium of 3.0, and he is receiving both oral (40 mEq) and IV potassium (40 mEq) repletion. The patient's home medication includes hydrochlorothiazide and irbesartan. He denies any recent cold or flu-like symptoms. He denies tobacco use but endorses occasional marijuana use. He reports starting Wegovy a few weeks ago, which has resulted in some episodes of vomiting. At the time of this evaluation, the patient states he is feeling significantly better. Review of Systems Review of Systems: CONSTITUTIONAL: Denies fever or chills. Reports resolution of acute symptoms. EYES: Denies vision changes or eye pain. ENT: Denies sore throat, rhinorrhea. CARDIOVASCULAR: Positive for palpitations. Reports prior chest pain that is now resolved. RESPIRATORY: Denies shortness of breath or cough. GASTROINTESTINAL: Positive for occasional vomiting since starting Wegovy. Denies abdominal pain or diarrhea. GENITOURINARY: Denies dysuria or frequency. MUSCULOSKELETAL: Denies myalgias or arthralgias. INTEGUMENTARY: Positive for diaphoresis during the acute event. Denies rash. NEUROLOGICAL: Positive for dizziness and reported garbled speech during the event. Denies headache or focal weakness. PSYCHIATRIC: Denies anxiety or depression. ENDOCRINE: Denies polyuria or polydipsia. HEMATOLOGIC/LYMPHATIC: Denies easy bruising or bleeding. ALLERGIC/IMMUNOLOGIC: Denies known drug or food allergies. [facility] Past Medical History Medical History Anxiety Depression Hypertension Surgical History Surgical History No pertinent past surgical history Family History Family History Mother Family history non-contributory Father Cerebrovascular accident Social History Social History Smoking status: Never smoker Tobacco type: e-cigarettes/vaping Alcohol intake: never Substance use: never Substance use type: does not use Lack of Transportation: No Lack of Food: Never True Current Housing: I Have Housing Concerned About Future Housing: No Difficulty Paying Gas/Electric Bills: No Difficulty Paying for Meds: No Currently Unemployed: No Education: Decline to Answer Difficulty w/ Childcare or Family Care: No Gender identity (if verbalized by the patient): Male Spiritual care concerns: No Meds Home Medications and Allergies Home Medications ?Medication ?Instructions ?Recorded ?Confirmed ?Type bupropion HCl 300 mg PO DAILY 07/07/24 11/25/24 History esomeprazole magnesium 20 mg .Route DAILY 07/07/24 11/25/24 History hydrochlorothiazide 25 mg PO DAILY 07/07/24 11/25/24 History irbesartan 150 mg PO HS 07/07/24 11/25/24 History buspirone 15 mg tablet 15 mg PO DAILY 11/25/24 11/25/24 History semaglutide (weight loss) 0.25 0.25 mg subcut Q7D 11/25/24 11/25/24 History mg/0.5 mL subcutaneous pen injector (Wegovy) sildenafil 100 mg tablet 100 mg PO DAILY PRN erectile 11/25/24 11/25/24 History dysfunction Allergies Allergy/AdvReac Type Severity Reaction Status Date / Time No Known Allergies Allergy Verified 11/25/24 18:49 Vital Signs Vital Signs - 24 hr 11/25/24 15:43 11/25/24 15:43 11/25/24 16:00 Pulse Rate 173 H 162 H Respiratory Rate 12 21 H Blood Pressure 148/89 H Pulse Oximetry 97 97 97 Oxygen Delivery Room Air Room Air 11/25/24 16:02 11/25/24 16:05 11/25/24 16:15 Pulse Rate 150 H 114 H 123 H Respiratory Rate 11 L 18 Blood Pressure 128/76 Pulse Oximetry 97 96 Oxygen Delivery 11/25/24 16:16 11/25/24 16:17 11/25/24 16:30 Pulse Rate 151 H 150 H 120 H Respiratory Rate 20 22 H Blood Pressure 138/51 L 138/51 L Pulse Oximetry 99 99 Oxygen Delivery 11/25/24 16:31 11/25/24 16:45 11/25/24 16:46 Pulse Rate 117 H 118 H 135 H Respiratory Rate 21 H 25 H 30 H Blood Pressure 135/102 H 142/104 H Pulse Oximetry 99 100 95 Oxygen Delivery 11/25/24 17:00 11/25/24 17:01 11/25/24 17:15 Pulse Rate 146 H 146 H 135 H Respiratory Rate 17 22 H 11 L Blood Pressure 120/95 H Pulse Oximetry 95 97 92 Oxygen Delivery 11/25/24 17:16 11/25/24 17:30 11/25/24 17:30 Pulse Rate 149 H 147 H 125 H Respiratory Rate 18 19 Blood Pressure 132/103 H 120/95 H Pulse Oximetry 97 93 Oxygen Delivery 11/25/24 17:31 11/25/24 17:32 11/25/24 17:32 Pulse Rate 124 H 129 H Respiratory Rate 20 12 Blood Pressure 170/97 H Pulse Oximetry 97 97 96 Oxygen Delivery Room Air 11/25/24 17:45 11/25/24 17:46 11/25/24 18:00 Pulse Rate 104 H 107 H 109 H Respiratory Rate 11 L 20 19 Blood Pressure Pulse Oximetry 95 97 92 Oxygen Delivery 11/25/24 18:01 11/25/24 18:11 11/25/24 18:13 Pulse Rate 104 H 80 85 Respiratory Rate 14 17 21 H Blood Pressure 128/87 Pulse Oximetry 96 99 94 Oxygen Delivery 11/25/24 18:14 11/25/24 18:15 11/25/24 18:16 Pulse Rate 88 93 104 H Respiratory Rate 14 15 Blood Pressure 140/86 Pulse Oximetry 94 96 Oxygen Delivery 11/25/24 18:25 Pulse Rate 91 Respiratory Rate Blood Pressure 140/86 Pulse Oximetry Oxygen Delivery Exam Narrative: GENERAL: Well-appearing, well-nourished, and in no acute distress. HEAD: Normocephalic, atraumatic. ENT:? Mucous membranes moist. CHEST: Clear to auscultation.? No respiratory distress. HEART: Regular rate and rhythm. ? Normal peripheral pulses. ABDOMEN: Soft, nontender, nondistended. EXTREMITIES: Normal range of motion. No peripheral edema. SKIN: Warm dry normal color NEURO: Alert and oriented x3. PSYCH: Normal mood and affect H&P: Results Labs Labs: Short CBC 11/25/24 Range/Units 15:50 WBC 8.2 (4.5-10.0) K/mm3 Hgb 15.2 (14.0-18.0) g/dL Hct 44.5 (42.0-52.0) % Plt Count 317 (150-375) k/mm3 BMP 11/25/24 15:50 Sodium 139 Potassium 2.9 L Chloride 103 Carbon Dioxide 23 BUN 11 Creatinine 1.06 Glucose 98 Calcium 9.6 Cardiac Enzymes 11/25/24 Range/Units 15:50 Troponin I 0.016 (0.000-0.034) ng/mL Liver Function 11/25/24 Range/Units 15:50 Total Bilirubin 0.7 (0.2-1.3) mg/dL AST 38 (17-59) U/L ALT 28 (6-50) U/L Alkaline Phosphatase 79 (38-126) U/L Albumin 4.6 (3.5-5.1) g/dL Pulse Oximetry SpO2 results: 94-97% on Attestation: I personally reviewed and interpreted this pulse oximetry as follows: Interpretation: No need for supplemental oxygenation at this time ECG Attestation: I personally reviewed and interpreted this ECG as follows: ECG completion date: 11/25/24 ECG completion time: 15:44 Prior ECG tracings: not available for review Interpretation: Atrial fibrillation with rapid ventricular response rate of 154 QRS duration 108 QTC 469 QRS axis 18, possible LVH as well as ST segment depression in V4 V5 Imaging Chest x-ray: Radiologist's impression: EXAMINATION: XR chest 1V portable COMPARISON: No comparisons available. HISTORY: chest pain FINDINGS: The lungs are clear, no effusion. No pneumothorax. Heart is normal size. Mediastinal and hilar contours are within normal limits. Bony thorax no acute abnormality. Miscellaneous: None Impression: No acute cardiopulmonary abnormality. Reviewed, dictated and finalized at location P. Assessment and Plan Assessment and plan (1) Atrial fibrillation with rapid ventricular response: Code(s): I48.91 - Unspecified atrial fibrillation Status: Acute Assessment and Plan: -New onset Afib RVR -HR 230s for EMS, 130s-190s in ER -IV and oral diltiazem given in ER with eventual conversion to sinus rhythm -CHADS VASC 1 due to history of HTN but decision made to anticoagulate with treatment dose of Lovenox in case Cardioversion needed -Cardiology consulted in ER, Dr. Leblanc requested oral metoprolol be started -Conversion to sinus rhythm with resolution of symptoms -Low potassium, normal magnesium noted in ER -Oral and IV potassium replacement given in ER -Repeat labs in AM -Minimal troponin delta noted from 0.016 to 0.021, canceled third troponin as all symptoms are resolved (2) Chest pain: Qualifiers: Chest pain type: unspecified Qualified Code(s): R07.9 - Chest pain, unspecified Code(s): R07.9 - Chest pain, unspecified Status: Acute Assessment and Plan: -Resolved with rate control and rhythm conversion -Caution use of nitro due to prescribed sildenafil (3) Hypokalemia: Code(s): E87.6 - Hypokalemia Status: Acute Assessment and Plan: -Potassium 3.0, replaced with 40 mEq oral and 40 mEq IV replacement -Recheck labs in AM (4) Hypertension: Code(s): I10 - Essential (primary) hypertension Status: Chronic Assessment and Plan: -Blood pressure controlled, hold HCTZ -Held irbesartan on admission due to diltiazem and metoprolol use, don't want to go hypotensive (5) Anxiety: Code(s): F41.9 - Anxiety disorder, unspecified Status: Chronic Assessment and Plan: -Continue bupropion and buspirone (6) Depression: Code(s): F32.A - Depression, unspecified Status: Chronic Assessment and Plan: -Continue bupropion and buspirone Quality VTE Prophylaxis VTE prophylaxis: pharmacologic ordered (Treatment dose Lovenox) Hospitalist [facility] Advance Care Plan I have confirmed that the patient's Advanced Care Plan is present, code status is documented, or surrogate decision maker is listed in patient medical record.: Yes Medication Reconciliation I have utilized all available resources to obtain, update and review the patients current medications (includes all prescriptions, OTC, herbals, cannabis, and nutritional supplements).: Yes
[2024-11-25 19:41] LABS: Cholesterol 188 mg/dL (0-200); HDL Direct 44 mg/dL; Triglycerides 97 mg/dL (<150)
[2024-11-25 19:55] LABS: Troponin I 0.021 ng/mL (0.000-0.034)
[2024-11-25] MEDS: SODIUM CHLORIDE 0.9% IV 1,000 ML 75 ML IV CONT (23:47)
[2024-11-26] VITALS (12 sets, daily range): BP systolic 131–154; BP diastolic 87–90; PULSE 60–82; RESP 16–18; TEMP 36.5–36.9; O2SAT 95–97
--- NOTE | 2024-11-26 | ECHO_ITS ---
Patient Info Name: Crow Deras Age: 44 years : 1980 Gender: Male Ht: 70 in Wt: 230 lbs BSA: 2.30 m2 HR: 62 bpm BP: 131 / 89 mmHg Technical Quality: Good Exam Date: 11/26/2024 9:49 AM Patient Status: unknown Admit Date: 11/25/2024 Exam Type: CA echo doppler color flow Complete two-dimensional, color flow and Doppler transthoracic echocardiogram is performed. Staff Referring Physician: Brea Cantrell Plate Take Out Worker: Silvano Mendez III Attending Provider: Wayne Clinton Summary 1. Complete two-dimensional, color flow and Doppler transthoracic echocardiogram is performed. 2. Left ventricular systolic function is normal, estimated at 55-60. 3. The left ventricular diastolic function is normal. 4. Left atrial chamber dimension is normal. Left Ventricle Left ventricular chamber dimension is normal. Left ventricular systolic function is normal, estimated at 55-60. There is no increased left ventricular wall thickness. Left ventricular septal wall motion is normal. The left ventricular diastolic function is normal. Right Ventricle Right ventricular chamber dimension is normal. Right ventricular systolic function is normal. Left Atria Left atrial chamber dimension is normal. Right Atria Right atrial chamber dimension is normal. Aortic Valve The aortic valve is trileaflet. There is no aortic valve sclerosis. There is no aortic valve stenosis. There is no aortic valve regurgitation. Pulmonic Valve The pulmonic valve is normal. There is no pulmonic valve stenosis. There is no pulmonic regurgitation. Mitral Valve The mitral valve has normal leaflets. There is no mitral valve stenosis. There is no mitral valve regurgitation. Tricuspid Valve The tricuspid valve leaflets are normal. There is no significant tricuspid valve stenosis. There is no tricuspid valve regurgitation. Pericardium/Pleural The pericardium appears normal. There is no pericardial effusion. Inferior Vena Cava Normal inferior vena cava with >50% collapse upon inspiration consistent with normal right atrial pressure, 5 mmHg. Aorta The aortic root size at the sinus of Valsalva is normal. The prox ascending aorta size is normal. Left Ventricular Outflow Tract Name Value Normal LVOT 2D LVOT Diameter 2.6 cm LVOT Doppler LVOT Peak Velocity 121 cm/s LVOT Peak Gradient 6 mmHg LVOT Mean Gradient 3 mmHg LVOT VTI 24 cm LVOT VTI/AV VTI Ratio 1.0 LVOT Stroke Volume 128 ml LVOT CO 9.8 l/min LVOT CI 4.3 l/min/m2 Pulmonic Valve Name Value Normal PV Doppler PV Peak Velocity 116 cm/s PV Peak Gradient 5 mmHg Mitral Valve Name Value Normal MV Doppler MV Peak Gradient 3 mmHg MV Mean Gradient 1 mmHg MV Area (Cont Eq VTI) 5.8 cm2 MV Diastolic Function MV E Peak Velocity 85 cm/s MV A Peak Velocity 53 cm/s MV E/A 1.6 MV Decel Time (PW) 145 ms MV Annular TDI MV E/e' (Septal) 7.3 MV E/e' (Lateral) 6.5 MV E/e' (Average) 6.9 Tricuspid Valve Name Value Normal Estimated PAP/RSVP RA Pressure 5 mmHg <=5 TV Annular TDI TV Lateral Myrtle s' Velocity 16.5 cm/s >=9.5 Aortic Valve Name Value Normal AV Doppler AV Peak Velocity 133 cm/s AV Peak Gradient 7 mmHg AV Mean Gradient 4 mmHg AV VTI 25 cm AV Area (Cont Eq VTI) 5.2 cm2 >=3.0 AV Area (Cont Eq Sorin) 4.9 cm2 AV DI (Sorin) 0.91 AV Regurgitation 2D LVOT Area 5.4 cm2 Ventricles Name Value Normal LV Dimensions 2D/MM IVS Diastolic Thickness (2D) 0.9 cm 0.6-1.0 LVID Diastole (2D) 5.1 cm 4.2-5.8 LVIW Diastolic Thickness (2D) 0.8 cm 0.6-1.0 LVID Systole (2D) 3.6 cm 2.5-4.0 LVOT Diameter 2.6 cm LV Mass (2D Cubed) 147.14 g 88.00-224.00 LV Mass Index (2D Cubed) 64 g/m2 49-115 Relative Wall Thickness (2D) 0.30 <=0.42 LV Fractional Shortening/Ejection Fraction 2D/MM LV Fractional Shortening (2D) 28 % 25-43 LV EF (2D Teichholz) 55 % LV Diastolic Volume (4C MOD) 170 ml LV EF (4C MOD) 63 % LV Diastolic Volume (2C MOD) 115 ml LV EF (2C MOD) 62 % LV Diastolic Volume (BP MOD) 144 ml 62-150 LV Diastolic Volume Index (BP MOD) 62 ml/m2 34-74 LV Systolic Volume (BP MOD) 55 ml 21-61 LV Systolic Volume Index (BP MOD) 24 ml/m2 11-31 LV EF (BP MOD) 62 % 52-72 LV Diastolic Length (4C) 9.5 cm LV Systolic Length (4C) 7.3 cm LV Stroke Volume (4C MOD) 107 ml Atria Name Value Normal LA Dimensions LA Volume (4C A-L) 76 ml LA Volume (BP A-L) 70 ml RA Dimensions RA Area (4C) 21.8 cm2 <=18.0 Report Signatures
[2024-11-26 04:43] LABS: Hematocrit 36.6 % (42.0-52.0); Hemoglobin 12.3 g/dL (14.0-18.0); Immature Granulocyte Percent A 0.3 % (0-0.5); Lymphocytes Absolute Auto 2.42 K/mm3 (0.9-3.2); Mean Corpuscular HGB Conc 33.6 g/dl (32-36); Mean Corpuscular Hemoglobin 28.7 pg (26-34); Mean Corpuscular Volume 85.5 fl (80-100); Nucleated Red Blood Cells Absolute Auto 0.000 K/mm3 (0.0-0.012); Nucleated Red Blood Cells Perc 0.0 % (0.0-0.2); Platelet Count Result 271 k/mm3 (150-375); Red Blood Count 4.28 M/mm3 (4.6-6.20); White Blood Count 6.4 K/mm3 (4.5-10.0)
[2024-11-26 04:52] LABS: Hemoglobin A1C 5.4 % (<5.7)
[2024-11-26 05:06] LABS: Alanine Aminotransferase 21 U/L (6-50); Albumin Level 3.6 g/dL (3.5-5.1); Alkaline Phosphatase 66 U/L (38-126); Anion Gap 8 mmol/L (4-12); Aspartate Amino Transferase 25 U/L (17-59); Bilirubin,Total 0.6 mg/dL (0.2-1.3); Blood Urea Nitrogen 10 mg/dL (9-20); Calcium 8.4 mg/dL (8.4-10.2); Carbon Dioxide 24 mmol/L (22-30); Chloride 107 mmol/L (98-107); Estimated CRCL calculation 103 ml/min; Estimated Glomerular Filt Rate > 60; Glucose 90 mg/dL (65-110); Magnesium 2.1 mg/dL (1.6-2.3); Potassium 3.5 mmol/L (3.4-5.0); Sodium 139 mmol/L (137-145); Total Protein 6.1 g/dL (6.3-8.2)
[2024-11-26] MEDS: ENOXAPARIN 120 MG/0.8 ML SYRINGE 110 MG SUB-Q (05:59)
--- NOTE | 2024-11-26 09:05 | PM.CNCAR ---
Assessment and Plan Assessment and plan (1) Atrial fibrillation with rapid ventricular response: Code(s): I48.91 - Unspecified atrial fibrillation Status: Acute Plan 44-year-old man with hypertension otherwise no significant medical history presents with symptoms of acute onset atrial fibrillation last evening. After being treated with metoprolol and diltiazem sinus rhythm has been restored and he is now asymptomatic. He normally takes ARB and hydrochlorothiazide for his hypertension. I am going to transition his metoprolol to metoprolol succinate. I will also empirically reduce his year per start 10 by half to avoid hypotension. Echocardiogram has been appropriately ordered those results are pending. He does not need to be anticoagulated as his chads Vasc score is 1. After his echocardiogram is reviewed he should be able to go home later this afternoon and I will follow him up in the office regarding his arrhythmia control. Christiano Shelby MD [facility] History of Present Illness History of Present Illness Consult date/time: 11/26/24 09:05 Reason For Visit: AFIB with RVR, hypokalemia Narrative: this is a very pleasant 44-year-old man I am seeing at the request of the hospitalist to assist with the evaluation and management of atrial fibrillation. He is not known to have any cardiac problems prior to this and he was noting the onset of this arrhythmia yesterday earlier in the day when he was visiting his mother and having a conversation with her. He was not under any sort of stress are having an on pleasant conversation. He suddenly felt unwell with the sense of diaphoresis, tachycardia and palpitations. He instructed them to call an ambulance he was transported here to the emergency room where he was found to be in atrial fibrillation with rapid ventricular response. Looks like he was treated with intravenous diltiazem and intravenous metoprolol and within a few hours she converted to sinus rhythm. He was continued on metoprolol tartrate to the night and anticoagulated with Lovenox. He feels well this morning and has no complaints. He is in sinus rhythm with an occasional PVC. He reports a history of hypertension for at least several years he has been on medication with year but start hilario and hydrochlorothiazide with reasonable control of his blood pressure. He says he thinks the year for start and makes him feel diaphoretic at times so he does not really like the medication. He is a lifelong nonsmoker. 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 He does not have any family history of premature coronary disease, no history of dyslipidemia. Review of Systems Constitutional: Constitutional: Reports no additional constitutional complaints Eyes: Eyes: Reports no additional eye complaints ENT: Reports system reviewed and no additional complaints, except as documented Cardiovascular: Cardiovascular: Reports as per HPI and Reports palpitations Respiratory: Respiratory: Reports no additional respiratory complaints Gastrointestinal: Gastrointestinal: Reports no additional gastrointestinal complaints Musculoskeletal: Musculoskeletal: Reports back pain Integumentary/Breasts: Skin/Breast: Reports system reviewed and no additional complaints, except as docu Neurologic: Reports system reviewed and no additional complaints, except as documented Endocrine: Endocrine: Reports no additional endocrine complaints Hematologic/Lymphatic: Hematologic/Lymphatic: Reports no additional hematologic/lymphatic complaints Allergic/Immunologic: Allergic/Immunologic: Reports no additional allergic/immunologic complaints [facility] Past Medical History Medical History Anxiety Depression Hypertension Surgical History Surgical History No pertinent past surgical history Family History Family History Mother Family history non-contributory Father Cerebrovascular accident Social History Social History Smoking status: Never smoker Tobacco type: e-cigarettes/vaping Alcohol intake: never Substance use: never Substance use type: does not use Lack of Transportation: No Lack of Food: Never True Current Housing: I Have Housing Concerned About Future Housing: No Difficulty Paying Gas/Electric Bills: No Difficulty Paying for Meds: No Currently Unemployed: No Education: Decline to Answer Difficulty w/ Childcare or Family Care: No Gender identity (if verbalized by the patient): Male Spiritual care concerns: No Meds Home Medications and Allergies Home Medications ?Medication ?Instructions ?Recorded ?Confirmed ?Type bupropion HCl 300 mg PO DAILY 07/07/24 11/25/24 History esomeprazole magnesium 20 mg .Route DAILY 07/07/24 11/25/24 History hydrochlorothiazide 25 mg PO DAILY 07/07/24 11/25/24 History irbesartan 150 mg PO HS 07/07/24 11/25/24 History buspirone 15 mg tablet 15 mg PO DAILY 11/25/24 11/25/24 History semaglutide (weight loss) 0.25 0.25 mg subcut Q7D 11/25/24 11/25/24 History mg/0.5 mL subcutaneous pen injector (Bhanu) sildenafil 100 mg tablet 100 mg PO DAILY PRN erectile 11/25/24 11/25/24 History dysfunction Allergies Allergy/AdvReac Type Severity Reaction Status Date / Time No Known Allergies Allergy Verified 11/25/24 18:49 Vital Signs Vital Signs - 24 hr 11/25/24 15:43 11/25/24 15:43 11/25/24 16:00 Temperature Pulse Rate 173 H 162 H Respiratory Rate 12 21 H Blood Pressure 148/89 H Pulse Oximetry 97 97 97 Oxygen Delivery Room Air Room Air Fraction of Inspired Oxygen 11/25/24 16:02 11/25/24 16:05 11/25/24 16:15 Temperature Pulse Rate 150 H 114 H 123 H Respiratory Rate 11 L 18 Blood Pressure 128/76 Pulse Oximetry 97 96 Oxygen Delivery Fraction of Inspired Oxygen 11/25/24 16:16 11/25/24 16:17 11/25/24 16:30 Temperature Pulse Rate 151 H 150 H 120 H Respiratory Rate 20 22 H Blood Pressure 138/51 L 138/51 L Pulse Oximetry 99 99 Oxygen Delivery Fraction of Inspired Oxygen 11/25/24 16:31 11/25/24 16:45 11/25/24 16:46 Temperature Pulse Rate 117 H 118 H 135 H Respiratory Rate 21 H 25 H 30 H Blood Pressure 135/102 H 142/104 H Pulse Oximetry 99 100 95 Oxygen Delivery Fraction of Inspired Oxygen 11/25/24 17:00 11/25/24 17:01 11/25/24 17:15 Temperature Pulse Rate 146 H 146 H 135 H Respiratory Rate 17 22 H 11 L Blood Pressure 120/95 H Pulse Oximetry 95 97 92 Oxygen Delivery Fraction of Inspired Oxygen 11/25/24 17:16 11/25/24 17:30 11/25/24 17:30 Temperature Pulse Rate 149 H 147 H 125 H Respiratory Rate 18 19 Blood Pressure 132/103 H 120/95 H Pulse Oximetry 97 93 Oxygen Delivery Fraction of Inspired Oxygen 11/25/24 17:31 11/25/24 17:32 11/25/24 17:32 Temperature Pulse Rate 124 H 129 H Respiratory Rate 20 12 Blood Pressure 170/97 H Pulse Oximetry 97 97 96 Oxygen Delivery Room Air Fraction of Inspired Oxygen 11/25/24 17:45 11/25/24 17:46 11/25/24 18:00 Temperature Pulse Rate 104 H 107 H 109 H Respiratory Rate 11 L 20 19 Blood Pressure Pulse Oximetry 95 97 92 Oxygen Delivery Fraction of Inspired Oxygen 11/25/24 18:01 11/25/24 18:11 11/25/24 18:13 Temperature Pulse Rate 104 H 80 85 Respiratory Rate 14 17 21 H Blood Pressure 128/87 Pulse Oximetry 96 99 94 Oxygen Delivery Fraction of Inspired Oxygen 11/25/24 18:14 11/25/24 18:15 11/25/24 18:16 Temperature Pulse Rate 88 93 104 H Respiratory Rate 14 15 Blood Pressure 140/86 Pulse Oximetry 94 96 Oxygen Delivery Fraction of Inspired Oxygen 11/25/24 18:25 11/25/24 20:00 11/25/24 20:00 Temperature 36.8 C Pulse Rate 91 82 Respiratory Rate 15 Blood Pressure 140/86 143/80 H Pulse Oximetry 97 Oxygen Delivery Room Air Fraction of Inspired Oxygen 11/25/24 20:00 11/25/24 20:39 11/25/24 20:53 Temperature Pulse Rate 88 90 82 Respiratory Rate 20 Blood Pressure Pulse Oximetry 94 Oxygen Delivery Room Air Fraction of Inspired Oxygen 21 11/25/24 22:00 11/25/24 23:41 11/26/24 00:00 Temperature 36.8 C Pulse Rate 74 67 Respiratory Rate 16 Blood Pressure 115/81 Pulse Oximetry 96 Oxygen Delivery Room Air Fraction of Inspired Oxygen 11/26/24 00:00 11/26/24 02:00 11/26/24 04:00 Temperature Pulse Rate 69 71 Respiratory Rate Blood Pressure Pulse Oximetry Oxygen Delivery Room Air Fraction of Inspired Oxygen 11/26/24 04:00 11/26/24 04:00 11/26/24 06:00 Temperature 36.5 C Pulse Rate 61 60 62 Respiratory Rate 16 Blood Pressure 131/89 Pulse Oximetry 96 Oxygen Delivery Fraction of Inspired Oxygen 11/26/24 07:59 Temperature 36.9 C Pulse Rate 72 Respiratory Rate 18 Blood Pressure 140/90 Pulse Oximetry 95 Oxygen Delivery Fraction of Inspired Oxygen Exam Const: General: comfortable and no acute distress Other: Very pleasant overweight man no distress BMI of 33 HENMT: Mouth: Yes moist mucous membranes Eyes: Sclera: sclerae normal Neck: Neck: supple and no JVD Resp: Effort & Inspection: normal respiratory effort Auscultation: clear to auscultation bilaterally Cardio: Rate: regular rate Rhythm: regular rhythm Other: no murmur no gallop no rub GI: GI Palp: Yes Soft to palpation Auscultation: normal bowel sounds Skin: General skin exam: normal color Neuro: Other: alert and oriented x3 Extrem: General: normal to inspection Results Labs and Meds 11/26/24 04:20 11/26/24 04:20 Lab results: Cardiac Enzymes 11/25/24 11/25/24 11/26/24 Range/Units 15:50 19:26 04:20 AST 38 25 (17-59) U/L Troponin I 0.016 0.021 D (0.000-0.034) ng/mL Coagulation 11/25/24 Range/Units 15:50 PT 13.3 (11.1-14.7) Seconds APTT 29.9 (22.3-36.8) Seconds Lipids 11/25/24 Range/Units 19:26 Triglycerides 97 (<150) mg/dL Cholesterol 188 (0-200) mg/dL CBC 11/25/24 11/26/24 Range/Units 15:50 04:20 WBC 8.2 6.4 (4.5-10.0) K/mm3 RBC 5.32 4.28 L (4.6-6.20) M/mm3 Hgb 15.2 12.3 L (14.0-18.0) g/dL Hct 44.5 36.6 L (42.0-52.0) % Plt Count 317 271 (150-375) k/mm3 Lymph # (Auto) 2.17 2.42 (0.9-3.2) K/mm3 [place] # (Auto) 0.9 H 0.7 H (0.1-0.6) K/mm3 Eos # (Auto) 0.0 0.1 (0-0.3) K/mm3 Baso # (Auto) 0.0 0.0 (0.0-0.1) K/mm3 Comprehensive Metabolic Panel 11/25/24 11/26/24 Range/Units 15:50 04:20 Sodium 139 139 (137-145) mmol/L Potassium 2.9 L 3.5 (3.4-5.0) mmol/L Chloride 103 107 (98-107) mmol/L Carbon Dioxide 23 24 (22-30) mmol/L BUN 11 10 (9-20) mg/dL Creatinine 1.06 0.96 (0.7-1.3) mg/dL Glucose 98 90 (65-110) mg/dL Calcium 9.6 8.4 (8.4-10.2) mg/dL AST 38 25 (17-59) U/L ALT 28 21 (6-50) U/L Alkaline Phosphatase 79 66 (38-126) U/L Total Protein 7.6 6.1 L (6.3-8.2) g/dL Albumin 4.6 3.6 (3.5-5.1) g/dL Intake and Output 11/25/24 11/26/24 11/26/24 23:59 07:59 15:59 Intake Total 1013.0 150 Balance 1013.0 150 Intake: IV 1013.0 Sodium Chloride 0.9% IV 1,000 1000 ml @ 999 mls/hr IV CONT .Q1H1M STA Rx#:[id number] dilTIAZem 100 MG/100 ML 100 mg 13.0 In 100 ml @ 0 MG/HR IV CONT . Q0M STA Rx#:[id number] Oral 150 Other: # Unmeasured Voids 2 Patient Weight 11/26/24 23:59 Weight 106 kg
[2024-11-26] MEDS: METOPROLOL SUCCINATE EXT REL 50 MG TABCR PO (09:27)
[2024-11-26] MEDS: buPROPion HCL XL (24 HR) 150 MG TABCR 300 MG PO (09:27)
[2024-11-26] MEDS: ASPIRIN 81 MG CHEWABLE TABLET PO (09:27)
[2024-11-26] MEDS: PANTOPRAZOLE 40 MG TABLET PO (09:28)
--- NOTE | 2024-11-26 14:31 | P.DS_ITS ---
DS: Admitting Diagnosis Discharge Date 11/26/2024 Admitting Diagnosis Palpitation DS: Discharge Diagnosis Discharge Diagnosis (1) Atrial fibrillation with rapid ventricular response: Code(s): I48.91 - Unspecified atrial fibrillation Status: Acute (2) Chest pain: Qualifiers: Chest pain type: unspecified Qualified Code(s): R07.9 - Chest pain, unspecified Code(s): R07.9 - Chest pain, unspecified Status: Acute (3) Hypokalemia: Code(s): E87.6 - Hypokalemia Status: Acute (4) Hypertension: Code(s): I10 - Essential (primary) hypertension Status: Chronic (5) Anxiety: Code(s): F41.9 - Anxiety disorder, unspecified Status: Chronic (6) Depression: Code(s): F32.A - Depression, unspecified Status: Chronic DS: Summary Hospital Course Hospital Course: This is a 44 year old male patient with a past medical history of hypertension and hyperlipidemia who presented to the emergency department for evaluation of palpitations. The patient reports he was at rest, sitting and talking with family this afternoon, when he experienced a sudden onset of a rapid heart rate. He endorsed associated symptoms of palpitations, sweating (diaphoresis), and mild dizziness. His family noted that his speech became garbled during the event. He denies current chest pain. Patient reports he requested the ambulance to be called. In the emergency department, the patient was found to be in an atrial fibrillation with RVR which subsequently converted to a sinus rhythm after significant amount of IV and oral diltiazem use. Cardiology was consulted and they requested oral metoprolol. He was also initiated on a subcutaneous Lovenox for treatment dose Q12HR. Initial lab work was significant for hypokalemia with potassium of 3.0, and he is receiving both oral (40 mEq) and IV potassium (40 mEq) repletion. The patient's home medication includes hydrochlorothiazide and irbesartan. He denies any recent cold or flu-like symptoms. He denies tobacco use but endorses occasional marijuana use. He reports starting Wegovy a few weeks ago, which has resulted in some episodes of vomiting. He remained in sinus rhythm throughout the hospital stay. Cardiology evaluated. New be discharged on metoprolol succinate. Echocardiogram. Since his chads Vasc score is 1 no anticoagulation is needed. Follow-up with cardiology as an outpatient basis Time Spent with Patient Time attestation: Total time spent providing and/or coordinating discharge services: 40 minutes Exam Narrative: GENERAL: Well-appearing, well-nourished, and in no acute distress. HEAD: Normocephalic, atraumatic. ENT:? Mucous membranes moist. CHEST: Clear to auscultation.? No respiratory distress. HEART: Regular rate and rhythm. ? Normal peripheral pulses. ABDOMEN: Soft, nontender, nondistended. EXTREMITIES: Normal range of motion. No peripheral edema. SKIN: Warm dry normal color NEURO: Alert and oriented x3. PSYCH: Normal mood and affect DS: Data Data Completed and Pending Completed studies during hospitalization: Exam Type: CA echo doppler color flow Complete two-dimensional, color flow and Doppler transthoracic echocardiogram is performed. Staff Referring Physician: Brea Cantrell Seam Rubbing Machine Operator: Silvano Mendez III Attending Provider: Wayne Clinton Summary 1. Complete two-dimensional, color flow and Doppler transthoracic echocardiogram is performed. 2. Left ventricular systolic function is normal, estimated at 55-60. 3. The left ventricular diastolic function is normal. 4. Left atrial chamber dimension is normal. Left Ventricle Left ventricular chamber dimension is normal. Left ventricular systolic function is normal, estimated at 55-60. There is no increased left ventricular wall thickness. Left ventricular septal wall motion is normal. The left ventricular diastolic function is normal. Right Ventricle Right ventricular chamber dimension is normal. Right ventricular systolic function is normal. Left Atria Left atrial chamber dimension is normal. Right Atria Right atrial chamber dimension is normal. Aortic Valve The aortic valve is trileaflet. There is no aortic valve sclerosis. There is no aortic valve stenosis. There is no aortic valve regurgitation. Pulmonic Valve The pulmonic valve is normal. There is no pulmonic valve stenosis. There is no pulmonic regurgitation. Mitral Valve The mitral valve has normal leaflets. There is no mitral valve stenosis. There is no mitral valve regurgitation. Tricuspid Valve The tricuspid valve leaflets are normal. There is no significant tricuspid valve stenosis. There is no tricuspid valve regurgitation. Pericardium/Pleural The pericardium appears normal. There is no pericardial effusion. Inferior Vena Cava Normal inferior vena cava with >50% collapse upon inspiration consistent with normal right atrial pressure, 5 mmHg. Aorta The aortic root size at the sinus of Valsalva is normal. The prox ascending aorta size is normal. Labs on day of discharge: Labs from last 24 hours 11/26/24 11/25/24 11/25/24 04:20 19:26 15:50 WBC 6.4 RBC 4.28 L Hgb 12.3 L Hct 36.6 L MCV 85.5 MCH 28.7 MCHC 33.6 RDW 12.9 Plt Count 271 MPV 10.0 Immature Gran % (Auto) 0.3 Neut % (Auto) 50.0 Lymph % (Auto) 37.7 [place] % (Auto) 10.6 H Eos % (Auto) 0.8 Baso % (Auto) 0.6 Lymph # (Auto) 2.42 [place] # (Auto) 0.7 H Eos # (Auto) 0.1 Baso # (Auto) 0.0 Abs Immat Gran (auto) 0.02 Absolute Neuts (auto) 3.2 Absolute Nucleated RBC 0.000 Nucleated RBC % 0.0 PT INR APTT D-Dimer Sodium 139 Potassium 3.5 Chloride 107 Carbon Dioxide 24 Anion Gap 8 BUN 10 Creatinine 0.96 Estim Creat Clear Calc 103 Estimated GFR > 60 Glucose 90 Hemoglobin A1c 5.4 Calcium 8.4 Magnesium 2.1 2.0 Total Bilirubin 0.6 0.7 AST 25 38 ALT 21 28 Alkaline Phosphatase 66 79 Troponin I 0.021 D 0.016 NT-Pro-B Natriuret Pep 41 Total Protein 6.1 L 7.6 Albumin 3.6 4.6 Triglycerides 97 Cholesterol 188 LDL Cholesterol Direct 112 HDL Direct 44 Lipase 234 TSH (Reflex) 1.360 11/25/24 15:50 WBC 8.2 RBC 5.32 Hgb 15.2 Hct 44.5 MCV 83.6 MCH 28.6 MCHC 34.2 RDW 12.6 Plt Count 317 MPV 9.6 Immature Gran % (Auto) 0.2 Neut % (Auto) 62.1 Lymph % (Auto) 26.4 [place] % (Auto) 10.4 H Eos % (Auto) 0.4 Baso % (Auto) 0.5 Lymph # (Auto) 2.17 [place] # (Auto) 0.9 H Eos # (Auto) 0.0 Baso # (Auto) 0.0 Abs Immat Gran (auto) 0.02 Absolute Neuts (auto) 5.1 Absolute Nucleated RBC 0.000 Nucleated RBC % 0.0 PT 13.3 INR 1.0 APTT 29.9 D-Dimer < 0.27 Sodium 139 Potassium 2.9 L Chloride 103 Carbon Dioxide 23 Anion Gap 13 H BUN 11 Creatinine 1.06 Estim Creat Clear Calc 96 Estimated GFR > 60 Glucose 98 Hemoglobin A1c Calcium 9.6 Magnesium Cancelled Total Bilirubin AST ALT Alkaline Phosphatase Troponin I NT-Pro-B Natriuret Pep Total Protein Albumin Triglycerides Cholesterol LDL Cholesterol Direct HDL Direct Lipase TSH (Reflex) Imaging Radiologist's impression: ITS Impressions Chest X-Ray 11/25/24 16:45 Impression: No acute cardiopulmonary abnormality. Discharge Plan Discharge Attending physician on discharge: Matty Pulido Consulting providers: Silvano Morrissey; Christiano Shelby; Keely Ness; Randal Real; Dominik Stephenson Discharging Clinician: Matty Pulido Anticipated Discharge Date/Time: 11/26/24 14:33 Patient Disposition: Home Activity: as tolerated Diet: heart healthy Patient Instructions: Antibiotic Form, Metoprolol (By mouth), A-fib (Atrial Fibrillation) (DC) Patient Language: Gabonese Stand Alone Forms: General Discharge Information Follow-up/Referrals: Christiano Shelby MD [Physician, Cardiology] - 2 Weeks PHYSICIAN,GENERAL LABOR FORKLIFT OPERATOR [Primary Care Provider, Internal Medicine] - 1 Week Discharge Medications: New metoprolol succinate 50 mg Tablet Extended Release 24 Hr 50 mg PO QAM Qty: 30 0RF potassium chloride [Klor-Con 10] 10 mEq tablet extended release 10 meq PO DAILY Qty: 30 0RF Continued hydrochlorothiazide 25 mg PO DAILY esomeprazole magnesium 20 mg .Route DAILY irbesartan 150 mg PO HS bupropion HCl 300 mg PO DAILY Wegovy 0.25 mg/0.5 mL pen injector 0.25 mg SUBCUT Q7D buspirone 15 mg tablet 15 mg PO DAILY sildenafil 100 mg tablet 100 mg PO DAILY PRN (Reason: erectile dysfunction) Date of admission: 11/25/24 17:45 Primary Care Provider: PHYSICIAN,GENERAL LABOR FORKLIFT OPERATOR Admitting Provider: Wayne Clinton Attending physician on admission: Matty Pulido Condition: Improved
--- NOTE | 2024-11-26 16:07 | PC.NURSE ---
Per Dr Lombardo, PT is ok to d/c home while awaiting echo results. Follow up in office. Notified Dr Pulido.
== END 2024-11-26 16:30 | disposition home or self-care (01) ==
LOC: ANHED 17:47 → ANHIMU 11-26 14:33
PROVIDERS: Emergency Medicine; Nurse Practitioner; Admitting Provider Internal Medicine; Emergency Provider Physician Assistant; Visit Provider Internal Medicine
DX: I48.91 Unspecified atrial fibrillation (principal); R07.9 Chest pain, unspecified; E87.6 Hypokalemia; I10 Essential (primary) hypertension; Z79.85 Long-term (current) use of injectable non-insulin antidiabetic drugs; F41.8 Other specified anxiety disorders
CPT/HCPCS: 36415; 71045; 80053; 80061; 83036; 83690; 83735; 83880; 84443; 84484; 85025; 85380; 85610; 85730; 93005; 93306; 96361; 96365; 96366; 96372; 96376; 99285; A9270; G0378; J1163; J1650; J3480; J7030; J7040